=== PATIENT | female | born 1960 | race Caucasian/White ===

== ENCOUNTER → 2016-12-03 | Outpatient (REF) | LOC: ZLAB.WCH 15:56 | DX: Z01.89 Encounter for other specified special examinations (principal) ==

== ENCOUNTER → 2017-05-19 | Outpatient (REF) | LOC: ZLAB.WCH 18:30 | DX: Z01.89 Encounter for other specified special examinations (principal) ==

== ENCOUNTER → 2017-06-29 | Outpatient (CLI) | payer OTHER | LOC: MC.RAD 12:52 | DX: D24.1 Benign neoplasm of right breast (principal); D24.2 Benign neoplasm of left breast ==

== ENCOUNTER → 2018-01-25 | Outpatient (CLI) | payer BC | LOC: MC.RAD 14:42 | DX: N63.21 Unspecified lump in the left breast, upper outer quadrant (principal) ==